=== PATIENT | male | born 1950 | race Caucasian/White ===

== ENCOUNTER → 2019-10-13 | Outpatient (CLI) | payer MEDICARE | END | disposition home or self-care (01) | LOC: LABWHC1 10:12 | PROVIDERS: ATTEND Urology | DX: Z53.9 Procedure and treatment not carried out, unspecified reason (principal) | CPT/HCPCS: 36415; 86850; 86900; 86901 ==

== ENCOUNTER → 2019-10-17 | Outpatient (CLI) | payer MEDICARE | END | disposition home or self-care (01) | LOC: LABWHC1 07:14 | PROVIDERS: ATTEND Urology | DX: U07.1 COVID-19 (principal) | CPT/HCPCS: 87635 ==

== ENCOUNTER 2019-10-19 11:33 | Day surgery (SDC) | payer MEDICARE ==
[2019-10-18 13:03] VITALS: BMI 32.7
--- NOTE | 2019-10-19 09:28 | P.GSHP ---
History of Present Illness H&P Date: 10/17/19 Chief Complaint: Prostate Cancer The patient is a 69-year-old white male found to have an elevated PSA level of 4.4. The prostate was palpably normal. Prostate ultrasound revealed a prostate volume of 35 mL. A hypoechoic lesion was seen at the left lateral base, but the left-sided biopsies were negative. 3 of 6 right-sided biopsies showed evidence of Yeimy 7 (3+4) adenocarcinoma. The patient reports urinary frequency and occasional intermittency, as well as erectile dysfunction. I had a lengthy discussion with the patient and his , reviewing alternative treatment options. He has elected to undergo a robotic-assisted laparoscopic prostatectomy (RALP) and comes for this reason. - Constitutional Constitutional: Reports chills, Reports fatigue, Reports fever - Cardiovascular Cardiovascular: Reports high blood pressure - Respiratory Respiratory: Reports wheezing - Gastrointestinal Gastrointestinal: Denies nausea, Denies vomiting Past Medical History Past Medical History: Cancer Additional Past Medical History / Comment(s): hx of polyps History of Any Multi-Drug Resistant Organisms: None Reported Past Surgical History: Orthopedic Surgery Additional Past Surgical History / Comment(s): rt knee arthroscopy, colonoscopy, vasectomy Past Anesthesia/Blood Transfusion Reactions: No Reported Reaction Smoking Status: Former smoker - Past Family History Father Family Medical History: Cancer Additional Family Medical History / Comment(s): leukemia Medications and Allergies Home Medications Medication Instructions Recorded Confirmed Type Lisinopril-Hctz 20-12.5 mg 2 tab PO DAILY 10/18/19 10/18/19 History [Zestoretic 20-12.5] Multivit-Min/Folic/Vit K/Lycop 1 each PO DAILY 10/18/19 10/18/19 History [Men's Multivitamin Tablet] Allergies Allergy/AdvReac Type Severity Reaction Status Date / Time No Known Allergies Allergy Verified 10/18/19 12:32 Surgical - Exam - General well developed, well nourished, no distress - Neck no masses, trachea midline - Respiratory normal respiratory effort, clear to auscultation - Cardiovascular Rhythm: regular Abnormal Heart Sounds: no systolic murmur, no diastolic murmur, no rub, no S3 Gallop, no S4 Gallop, no click, no other - Abdomen Abdomen: soft, non tender, no guarding, no rigid, no rebound Hernia: no none, no inguinal, no epigastric, no incisional, no reducible, no femoral, no umbilical, no scrotal, no incarcerated - Genitourinary normal penis with no external lesions, testicles non-tender - Rectum Rectum: normal sphincter tone, no masses, other (Prostate mildly enlarged but smooth) - Psychiatric oriented to time, oriented to person, oriented to place, speech is normal, memory intact Assessment and Plan (1) Malignant neoplasm of prostate Status: Acute Code(s): C61 - MALIGNANT NEOPLASM OF PROSTATE SNOMED Code(s): 963624954 Plan: Robotic-Assisted Laparoscopic Prostatectomy. The procedure has been reviewed in detail with the patient. I explained that this is a procedure of choice in a healthy male with an expected longevity of greater than 10 years. I explained in great detail the potential risks, which include anesthesia, bleeding, and infection. In addition, I went into great detail concerning the two common complications, ie impotence and urinary incontinence. He reports erectile dy sfunction and thus perservation of potency is not a concern of his. I explained that other complications include intestinal injury (which may require a colostomy), ureteral injury, penile edema post-operatively, bladder neck contracture, urethral stricture, lymphocele, post-operative ileus, thrombophlebitis, ventral hernia, and possible urinary fistula. The patient has also been advised of the possibility of treatment failure, and the possible need for adjuvant therapy.
[~2019-10-19 11:33] MED LIST: DEXAMETHASONE SOD PHOSPHATE 10 MG/ML 1 ML VIAL IV ONE; HEPARIN SODIUM,PORCINE 5,000 UNIT/ML 1 ML VIAL SQ ONE; LIDOCAINE 1% (10MG/ML) FOR IV START INTRADERMA PRN; ONDANSETRON 4 MG/2 ML VIAL IVP ONE; SCOPOLAMINE 1.5MG/72HR PATCH TRANSDERM ONE
[2019-10-19 12:59] LABS: HCT 44.7 % (39.0-53.0); MCH 35.1 pg (25.0-35.0); MCHC 33.5 g/dL (31.0-37.0); MCV 104.7 fL (80.0-100.0); Macrocytosis Slight; Mean Platelet Volume 7.8; Platelet Count 173 k/uL (150-450); RBC 4.27 m/uL (4.30-5.90); RDW 13.3 % (11.5-15.5); WBC 6.3 k/uL (3.8-10.6)
[2019-10-19 13:02] LABS: African American GFR (CKD) >90 (>60 ml/min/1.73 sqM); Anion Gap 6 mmol/L; Blood Urea Nitrogen 26 mg/dL (9-20); Calcium 9.5 mg/dL (8.4-10.2); Carbon Dioxide 27 mmol/L (22-30); Chloride 105 mmol/L (98-107); Glucose 99 mg/dL (74-99); Non-African American GFR(CKD) 78 (>60 ml/min/1.73 sqM); Potassium 4.3 mmol/L (3.5-5.1); Sodium 138 mmol/L (137-145)
[2019-10-19] MEDS ORDERED: LACTATED RINGERS 1,000 ML IV ONE ×2 (13:05→15:58)
[2019-10-19] MEDS: LACTATED RINGERS 1,000 ML IV SCH (13:10)
[2019-10-19] MEDS ORDERED: GLYCOPYRROLATE 0.2 MG/ML 2 ML VIAL ONE (13:27)
[2019-10-19] MEDS ORDERED: SUCCINYLCHOLINE CHLORIDE 100 MG/5 ML SYR IV ONE (13:27)
[2019-10-19] MEDS ORDERED: ROCURONIUM BROMIDE 10 MG/ML 5 ML VIAL IV ONE (13:27)
[2019-10-19] MEDS ORDERED: LABETALOL 5 MG/ML VIAL MDV ONE (13:27)
[2019-10-19] MEDS ORDERED: PROPOFOL 10 MG/ML 20 ML VIAL IV ONE (13:27)
[2019-10-19] MEDS ORDERED: LIDOCAINE 1% INJ 10MG/ML (20 ML MDV) ONE (13:27)
[2019-10-19] MEDS ORDERED: HYDROmorphone (PF) 1 MG/ML ONE (13:27)
[2019-10-19] MEDS ORDERED: NEOSTIGMINE 1 MG/ML 10 ML VIAL ONE (13:27)
[2019-10-19] MEDS ORDERED: MIDAZOLAM 2 MG/2 ML VIAL ONE (13:27)
[2019-10-19] MEDS ORDERED: fentaNYL (PF) 50 MCG/ML 2 ML AMP ONE (13:27)
[2019-10-19] MEDS ORDERED: BUPIVACAINE (PF) 0.25% 30 ML VIAL SQ ONE ×2 (13:58→17:20)
--- NOTE | 2019-10-19 17:31 | P.OP ---
Date of Procedure: 10/19/19 Preoperative Diagnosis: Adenocarcinoma of the prostate, clinical stage TIc NX M0 Postoperative Diagnosis: Same Procedure(s) Performed: Robotic-assisted laparoscopic prostatectomy (RALP) Anesthesia: PATTI Surgeon: Gustabo Nicolas Size Roller Operator #1: Natalio Rodriguez Estimated Blood Loss (ml): 100 IV fluids (ml): 1,500 Pathology: other (Prostate and seminal vesicles) Condition: stable Disposition: PACU Indications for Procedure: The patient is a 69-year-old white male found to have an elevated PSA level of 4.4. The prostate was palpably normal. Prostate ultrasound revealed a prostate volume of 35 mL. A hypoechoic lesion was seen at the left lateral base, but the left-sided biopsies were negative. 3 of 6 right-sided biopsies showed evidence of Yeimy 7 (3+4) adenocarcinoma. The patient reports urinary frequency and occasional intermittency, as well as erectile dysfunction. I had a lengthy discussion with the patient and his , reviewing alternative treatment options. He has elected to undergo a robotic-assisted laparoscopic prostatectomy (RALP) and comes for this reason. Operative Findings: No evidence of extraprostatic disease. Description of Procedure: The patient was taken in the operating room and placed in the dorsal lithotomy position, with his legs supported in Saroj stirrups. He was carefully positioned on a beanbag for stability. The abdomen and external genitalia were prepped and draped sterilely. A Arechiga catheter was inserted. The Veress needle was passed through the anterior abdominal wall immediately cephalad to the umbilicus, and insufflation was performed to a pressure of 20 mm Hg. Once insufflation was performed, the Veress needle was removed and a supraumbilical incision was made, through which a 12 mm camera port was placed. Under camera guidance, 3 8 mm robotic ports were placed, 2 on the left and one on the right. An additional 12 mm port was placed on the right lateral side for use as an assistant press operator port. A 5 mm port was placed to the right of the camera port for suction. The patient was placed in Trendelenburg position, and docking was then performed to the da Darryl system utilizing a 4-arm approach. The abdomen was examined. The sigmoid colon was mobilized out of the pelvis. The peritoneum was incised lateral to the medial umbilical ligaments bilaterally, exposing the pubis. The peritoneum was then incised across the midline, allowing the bladder flap to be taken down. The endopelvic fascia was opened bilaterally, and muscular attachments from the urogenital diaphragm were swept away from the prostate. The vesical neck was incised transversely, down to the lumen. The Arechiga catheter was brought out through the anterior vesical neck incision and was used for traction. The posterior aspect of the vesical neck was incised, such that the full-thickness of the vesical neck was divided. The anterior layer of the Denonvilliers fascia was incised, exposing the vas deferens. Each were isolated and divided. Next, each of the seminal vesicles were dissected away from adjacent tissues, and vascular attachments were cauterized and divided. The posterior leaf of Denonvilliers fascia was incised transversely, allowing entry into the plane between the prostate and rectum. Initially, this incision was intraprostatic, but this was recognized and the correct plane was entered. With lateral spreading, this plane was developed down to the apex. This exposed the lateral vascular pedicles bilaterally. These were clipped and divided in an antegrade fashion, down to the apex. The remaining apical attachments were swept away from the prostate. The dorsal venous complex was incised, as well as periurethral tissue. At this point, only the urethra remained intact. This was transected immediately distal to the prostatic apex using cold scissors. The specimen was placed within a specimen bag. The dorsal venous complex was sutured using a V-Loc suture in a running fashion. The suture was passed through the periosteum of the pubis periurethral support. A second V-Loc suture was then used to place the Bill stitch, incorporating the rhabdosphincter and the edge of Denonvilliers fascia. This allowed the bladder to be taken down to the urethra, leaving the vesical neck immediately adjacent to the urethra. The vesicourethral anastomosis was then performed using a V-Loc suture in a running fashion. After completing the anastomosis, an 18-Indonesian Arechiga catheter was placed and approximately 150 mL of 0.9 normal saline were instilled into the bladder. No extravasation of irrigant from the vesicourethral anastomosis was noted. A small amount of oozing was noted from the vascular pedicles, so Surgicel was placed bilaterally. Tisseel was sprayed into the pelvis over the vascular pedicles, dorsal vein, and vesicourethral anastomosis. The patient was returned to the supine position. Undocking was performed, and the specimen bag sutures were passed through the camera port. After removing all the ports and allowing all of the CO2 to be released from the peritoneal cavity, the camera port incision was enlarged to allow removal of the surgical specimen. The fascia of this incision was then closed using #1-PDS suture in a running fashion. Each of the skin incisions were then closed using 4-0 Monocryl suture in a subcuticular fashion. Marcaine was injected at each of the incision sites. Dermabond was applied to each incision. The Arechiga catheter was connected to gravity drainage. All sponge and needle counts were correct. The patient tolerated the procedure well was taken to the recovery room in stable condition.
[2019-10-19] MEDS ORDERED: ONDANSETRON 4 MG/2 ML VIAL IVP PRN (17:32)
[2019-10-19] MEDS ORDERED: ACETAMINOPHEN TAB 325 MG TAB PO PRN (17:32)
[2019-10-19] MEDS ORDERED: KETOROLAC 30 MG/ML 1 ML VIAL IVP PRN (17:32)
[2019-10-19] MEDS: HYDROmorphone 0.5 MG/0.5 ML SYRINGE IVP PRN ×2 (17:46→17:58)
[2019-10-19] MEDS ORDERED: ONDANSETRON 4 MG/2 ML VIAL IVP ONE (17:46)
[2019-10-19] MEDS ORDERED: KETOROLAC 30 MG/ML 1 ML VIAL IVP ONE (17:52)
[2019-10-19 20:03] VITALS: RESP 18
[2019-10-19] MEDS: DEXTROSE 5%-0.45% NACL 1,000 ML IV SCH (20:15)
[2019-10-19] MEDS: HEPARIN SODIUM,PORCINE 5,000 UNIT/ML 1 ML VIAL SQ SCH (20:16)
[2019-10-20] MEDS: LACTATED RINGERS 1,000 ML IV SCH (00:48)
[2019-10-20] MEDS: DEXTROSE 5%-0.45% NACL 1,000 ML IV SCH ×2 (02:25→10:54)
[2019-10-20] MEDS: HYDROmorphone 1 MG/ML 1 ML SYRINGE IVP PRN ×2 (03:50→09:55)
[2019-10-20 04:47] VITALS: BP 144/73; PULSE 104; TEMP 97.9
[2019-10-20] MEDS: HEPARIN SODIUM,PORCINE 5,000 UNIT/ML 1 ML VIAL SQ SCH (08:36)
[2019-10-20] MEDS ORDERED: LISINOPRIL-HCTZ 20-12.5 MG 1 EACH TAB PO SCH (09:00)
--- NOTE | 2019-10-20 09:26 | P.DS ---
Providers Expected date of discharge: 10/20/19 Attending physician: Gustabo Nicolas Primary care physician: Shiv Muller - Discharge Diagnosis(es) (1) Malignant neoplasm of prostate Current Visit: No Status: Acute Hospital Course: on the day of admission, the patient underwent an uncomplicated robotic assisted laparoscopic prostatectomy. The perioperative course was unremarkable. On the first postoperative day, he denied chest pain, shortness of breath, nausea, and vomiting. He reported mild incisional discomfort, relieved by analgesics. He tolerated clear liquid diet. He was afebrile with stable vital signs. The abdomen was soft and non-distended. The incisions were clean and dry. The Arechiga catheter was draining clear yellow urine. Procedures: RALP on 10/19/2019. Patient Condition at Discharge: Good Plan - Discharge Summary Discharge Rx Participant: No New Discharge Prescriptions: New Ciprofloxacin HCl [Cipro] 250 mg PO Q12HR #6 tablet Hydrocodone/Acetaminophen [Depue 5-325] 1 - 2 each PO Q4HR PRN #6 tab PRN Reason: Pain No Action Lisinopril-Hctz 20-12.5 mg [Zestoretic 20-12.5] 2 tab PO DAILY Multivit-Min/Folic/Vit K/Lycop [Men's Multivitamin Tablet] 1 each PO DAILY Discharge Medication List Lisinopril-Hctz 20-12.5 mg [Zestoretic 20-12.5] 2 tab PO DAILY 10/18/19 [History] Multivit-Min/Folic/Vit K/Lycop [Men's Multivitamin Tablet] 1 each PO DAILY 10/18/19 [History] Ciprofloxacin HCl [Cipro] 250 mg PO Q12HR #6 tablet 10/20/19 [Rx] Hydrocodone/Acetaminophen [Depue 5-325] 1 - 2 each PO Q4HR PRN #6 tab 10/20/19 [Rx] Follow up Appointment(s)/Referral(s): Gustabo Nicolas MD [STAFF PHYSICIAN] - 10/29/19 Activity/Diet/Wound Care/Special Instructions: Discharge home with Arechiga catheter. Please provide patient with an overnight drainage bag as well as a urinary leg bag, and instruct him on the use of both. OK to shower. Diet as tolerated. No lifting, driving, or strenuous activity. Begin taking ciprofloxacin one day prior to follow-up appointment. Please reassure patient that it is common to experience the following: Hematuria, urinary leakage around the catheter, abdominal wall bruising, and penoscrotal swelling. Discharge Disposition: HOME SELF-CARE
== END 2019-10-20 11:55 | disposition home or self-care (01) ==
LOC: OR 11:33 → 5NMEDONC 17:34 → OR 10-20 11:55
PROVIDERS: ATTEND Urology
DX: C61 Malignant neoplasm of prostate (principal); I10 Essential (primary) hypertension; N52.9 Male erectile dysfunction, unspecified; K08.89 Other specified disorders of teeth and supporting structures; Z87.898 Personal history of other specified conditions; Z98.890 Other specified postprocedural states; Z98.52 Vasectomy status; Z87.891 Personal history of nicotine dependence; Z79.899 Other long term (current) drug therapy; Z97.2 Presence of dental prosthetic device (complete) (partial); Z80.6 Family history of leukemia
CPT/HCPCS: 55866; 86900; 86901; 80048; 85027; 86850; 88309; 36415; C1762; J2250; J1644 ×2; J1100; J2710; J0690; J2405; J2001; J3010; J1885; J1170 ×3; J0330; J2704

== ENCOUNTER → 2019-11-17 | Outpatient (CLI) | payer MEDICARE | END | disposition home or self-care (01) | LOC: LABWHC1 08:10 | PROVIDERS: ATTEND Urology | DX: Z00.00 Encounter for general adult medical examination without abnormal findings (principal); Z13.220 Encounter for screening for lipoid disorders; C61 Malignant neoplasm of prostate | CPT/HCPCS: 36415; 84153 ==

== ENCOUNTER → 2020-02-15 | Outpatient (CLI) | payer MEDICARE ==
[2020-02-15 16:46] LABS: ALT 102 U/L (10-49); AST 63 U/L (14-35); African American GFR (CKD) 77.3 (60.0-200.0); Albumin/Globulin Ratio 1.52 (1.60-3.17); Alkaline Phosphatase 83 U/L (41-126); BUN/Creat Ratio 27.27 Ratio (12.00-20.00); Carbon Dioxide 28.4 mmol/L (21.6-31.8); Chloride 107 mmol/L (96-109); Globulin 2.9 g/dL (1.6-3.3); Glucose 110 mg/dL (70-110); Non-African American GFR(CKD) 66.7 (60.0-200.0); Potassium 4.4 mmol/L (3.5-5.5); Prostate Specific Antigen <0.1 ng/mL (0.0-6.5); Sodium 139 mmol/L (135-145); Total Bilirubin 0.6 mg/dL (0.3-1.2); Total Protein 7.3 g/dL (6.2-8.2)
== END | disposition home or self-care (01) ==
LOC: LABWHC1 07:51
PROVIDERS: ATTEND Urology
DX: Z00.00 Encounter for general adult medical examination without abnormal findings (principal); Z13.220 Encounter for screening for lipoid disorders; C61 Malignant neoplasm of prostate
CPT/HCPCS: 36415; 80053; 84153

== ENCOUNTER → 2020-05-08 | Outpatient (CLI) | payer MEDICARE | END | disposition home or self-care (01) | LOC: LABWHC1 08:37 | PROVIDERS: ATTEND Urology | DX: R97.20 Elevated prostate specific antigen [PSA] (principal) | CPT/HCPCS: 36415; 84153 ==

== ENCOUNTER → 2020-10-12 | Outpatient (CLI) | payer MEDICARE | END | disposition home or self-care (01) | LOC: LABWHC1 08:35 | PROVIDERS: ATTEND Urology | DX: C61 Malignant neoplasm of prostate (principal) | CPT/HCPCS: 36415; 84153 ==

== ENCOUNTER → 2020-12-08 | Outpatient (CLI) | payer MEDICARE ==
--- NOTE | 2020-12-08 09:06 | CTL ---
EXAMINATION TYPE: CT Low Dose Lung DATE OF EXAM ORDERED: 12/08/2020 COMPARISON: HISTORY: . Low Dose CT Lung Screening CT DLP: 143.[address] CTDI: 3.8 mGy IV CONTRAST USED: None. SCREENING VISIT: First visit COMPARISON: None. TECHNIQUE: Low dose computed tomography scan was performed through the chest at 1 millimeter thick se ctions and reconstructed images in the coronal plane at [address] DIAGNOSTIC QUALITY: Satisfactory FINDINGS: LUNG NODULES: Not presentLeft lung: no nodules identified.Right lung: no nodules identified. LUNGS: COPD: Severity: Mild Fibrosis: Severity:None Lymph nodes: None Other findings: None RIGHT PLEURAL SPACE: Effusion: None Calcification: None Thickening: None Pneumothorax: None LEFT PLEURAL SPACE: Effusion: None Calcification: None Thickening: None Pneumothorax: None HEART: Heart Size: Mildly enlarged Coronary calcification: Mild Pericardial effusion: None OTHER FINDINGS: Upper abdomen: No significant abnormality Bony thorax: Degenerative changes Supraclavicular region: No significant abnormalityOther: No significant abnormalityI IMPRESSION: Mild COPD without evidence for a discrete dominant nodule. FOLLOW UP CT CHEST RECOMMENDATION: Follow-up screening in one year CT LUNG RAD: LUNG RAD CATEGORY 1 negative
== END | disposition home or self-care (01) ==
LOC: RADCTMAIN 07:59
PROVIDERS: ATTEND Pediatrics
DX: Z12.2 Encounter for screening for malignant neoplasm of respiratory organs (principal); J44.9 Chronic obstructive pulmonary disease, unspecified; Z87.891 Personal history of nicotine dependence
CPT/HCPCS: 71271

== ENCOUNTER → 2021-04-23 | Outpatient (CLI) | payer MEDICARE | END | disposition home or self-care (01) | LOC: LABWHC1 07:11 | PROVIDERS: ATTEND Urology | DX: C61 Malignant neoplasm of prostate (principal) | CPT/HCPCS: 36415; 84153 ==

== ENCOUNTER → 2021-10-09 | Outpatient (CLI) | payer MEDICARE | END | disposition home or self-care (01) | LOC: LABWHC1 08:20 | PROVIDERS: ATTEND Urology | DX: C61 Malignant neoplasm of prostate (principal) | CPT/HCPCS: 36415; 84153 ==

== ENCOUNTER → 2021-12-12 | Outpatient (CLI) | payer MEDICARE ==
--- NOTE | 2021-12-12 12:53 | CT ---
EXAMINATION TYPE: CT urogram wo/w con CT DLP: 2375.4 mGycm, Automated exposure control for dose reduction was used. DATE OF EXAM: 12/12/2021 9:50 AM COMPARISON: None CLINICAL INDICATION:Male, 71 years old with history of R31.0 Gross Hematuria, Gross Hematuria TECHNIQUE: Urogram with unenhanced, nephrographic and excretory phase imaging of the abdomen and pelvis using tw o doses of 100 cc of IV contrast Isovue 300 contrast. Coronal and sagittal reformats were performed. One or more CT dose reduction strategies were utilized during this examination. 2D and 3D reconstruct ions are performed to assist visualization of the urinary tract on a separate workstation. FINDINGS: GENITOURINARY: RIGHT KIDNEY AND URETER: No calculi. No hydronephrosis or hydroureter. No renal mass. Limited evaluat ion of the distal ureter without evidence of filling defect within the right collecting system. Scatt ered too small to characterize probable renal cysts on the right kidney. LEFT KIDNEY AND URETER: No calculi. No renal mass. There is mild left hydronephrosis with asymmetric decreased excretion of IV contrast from the left kidney which limits evaluation of the collecting sys tem. Within the visualized renal calyces no evidence of urothelial lesion. The left ureter is subopti cherrie evaluated given lack of excreted contrast within the collecting system. Left superior pole uday l cyst present. URINARY BLADDER: Delayed imaging demonstrated no contrast within the urinary bladder limiting evaluat ion for masses. No calculi identified. REPRODUCTIVE: Unremarkable. ABDOMEN LIVER: Right hepatic lobe cyst which is too small to characterize measuring 8 mm.. GALLBLADDER AND BILE DUCTS: Unremarkable PANCREAS: Unremarkable. SPLEEN: Unremarkable. ADRENAL GLANDS: Unremarkable. STOMACH AND BOWEL: Scattered clonic diverticula. There is a large stool burden throughout the colon m ost pronounced in the sigmoid and rectum. No evidence of bowel obstruction. PERITONEUM: No evidence of pneumoperitoneum, free fluid, or adenopathy. VASCULATURE: Mild scattered atherosclerosis throughout the arterial system. MUSCULOSKELETAL: Mild multilevel disc degeneration changes. Degeneration changes involving the femora l heads left greater than right with osteophyte formation. SOFT TISSUE/ABDOMINAL WALL: Unremarkable. LOWER CHEST: The heart is mildly enlarged for size. Dependent atelectasis seen within the lung bases. IMPRESSION: 1. No evidence of right urothelial/renal lesion. There is significant limitations involving the dist al right ureter, entire left ureter, urinary bladder and a majority of the left renal calyces seconda ry poor left renal excretion. This resulted in unopacified/incomplete opacification of the majority o f the left renal calyces and the entire left ureter. Limited evaluation of bladder secondary to lack of excreted IV contrast. 2. Colonic diverticulosis. 3. Mild cardiomegaly.
== END | disposition home or self-care (01) ==
LOC: RADCTMAIN 08:06
PROVIDERS: ATTEND Urology
DX: K57.30 Diverticulosis of large intestine without perforation or abscess without bleeding (principal); I51.7 Cardiomegaly
CPT/HCPCS: 82565; 84520; 74178; 36415; 74400; Q9967

== ENCOUNTER → 2022-10-03 | Outpatient (CLI) | payer MEDICARE | END | disposition home or self-care (01) | LOC: LABWHC1 08:57 | PROVIDERS: ATTEND Urology | DX: C61 Malignant neoplasm of prostate (principal) | CPT/HCPCS: 36415; 84153 ==

== ENCOUNTER 2023-03-21 11:32 | Day surgery (SDC) | payer MEDICARE ==
[2023-03-14 15:32] VITALS: BMI 28.7
[~2023-03-21 11:32] MED LIST changes: -DEXAMETHASONE SOD PHOSPHATE 10 MG/ML 1 ML VIAL IV ONE; -HEPARIN SODIUM,PORCINE 5,000 UNIT/ML 1 ML VIAL SQ ONE; +LACTATED RINGERS 1,000 ML IV SCH; -ONDANSETRON 4 MG/2 ML VIAL IVP ONE; -SCOPOLAMINE 1.5MG/72HR PATCH TRANSDERM ONE; +fentaNYL (PF) 50 MCG/ML 2 ML AMP IV PRN
[2023-03-21] MEDS ORDERED: LACTATED RINGERS 1,000 ML IV ONE (11:50)
[2023-03-21 12:13] VITALS: RESP 16; TEMP 97.5
[2023-03-21] MEDS ORDERED: MIDAZOLAM 2 MG/2 ML VIAL ONE (12:28)
[2023-03-21] MEDS ORDERED: LIDOCAINE 1% INJ 10MG/ML (20 ML MDV) ONE (12:28)
[2023-03-21] MEDS ORDERED: fentaNYL (PF) 50 MCG/ML 2 ML AMP ONE (12:28)
[2023-03-21] MEDS ORDERED: KETAMINE HCL IN 0.9 % NACL 50 MG/5 ML SYRINGE ONE (12:28)
[2023-03-21] MEDS ORDERED: PROPOFOL 10 MG/ML 20 ML VIAL IV ONE (12:28)
[2023-03-21] MEDS ORDERED: LIDOCAINE 2% INJ 20 MG/ML INTRATRACH ONE (12:46)
[2023-03-21 13:26] VITALS: BP 133/81; PULSE 74
--- NOTE | 2023-03-21 13:40 | OP ---
OPERATIVE REPORT DATE OF SERVICE : PROCEDURES PERFORMED: Bronchoscopy with bronchoalveolar lavage of the left lower lobe. PREOPERATIVE DIAGNOSES: Abnormal CT of the chest, questioning the left mainstem bronchial wall thickening and a history of bronchiectasis. POSTOPERATIVE DIAGNOSES: Chronic bronchitis and bronchiectasis, no evidence of any significant endobronchial pathology otherwise. ANESTHESIA USED: IV conscious sedation. DESCRIPTION OF PROCEDURE: The patient was prepared according to the bronchoscopy protocol. O2 was applied via Ventimask. The patient was placed in a supine position, he was prepared according to the bronchoscopy protocol prior, and we monitored his O2 saturation continuously. Blood pressure was intermittently monitored and cardiac rhythm was continuously monitored. After adequate IV conscious sedation, the bronchoscope was inserted through the left naris, and advanced into the area of the vocal cords. The vocal cords were patent and unremarkable. Lidocaine was applied over the vocal cords, and the bronchoscope was advanced down further to the trachea. Thorough examination was done of trachea, turner, right upper lobe, right middle lobe, right lower lobe, left upper lobe, lingula and left lower lobe. There was evidence of mucosal inflammation and swelling, and the mucosa was relatively friable, but there was no evidence of any endobronchial tumor or significant concern to consider any malignancy. Then, the bronchoscope was wedged down to the left lower lobe bronchus and lavage of the left lower lobe was performed. Minimal white secretions, nonpurulent were removed from the left lower lobe. The fluid was sent for different diagnostic studies, no complications. Family updated on his condition. The patient is to follow up with me on an outpatient basis. MMODL / IJN: [id number] /
[2023-03-22 06:18] LABS: Appearance,BF Hazy (Clear); RBC, Body Fluid 35 /UL (0-2000)
[2023-03-24 15:04] LABS: Nucleated Cells, Body Fluid 53 /UL
== END 2023-03-21 13:33 | disposition home or self-care (01) ==
LOC: ORWHC2ENDO 11:32
PROVIDERS: ATTEND Internal Medicine
DX: J42 Unspecified chronic bronchitis (principal); J47.9 Bronchiectasis, uncomplicated
CPT/HCPCS: 87798 ×3; 87496; 87498; 87529; 89050; 87502; 87634; 87070; 87205; 87116; 87102; 87077; 87186; 87206; 31624; J2001 ×2; J2250; J3010; J2704

== ENCOUNTER → 2023-10-08 | Outpatient (CLI) | payer MEDICARE | END | disposition home or self-care (01) | LOC: LABWHC1 08:19 | PROVIDERS: ATTEND Urology | DX: C61 Malignant neoplasm of prostate (principal) | CPT/HCPCS: 36415; 84153 ==